=== PATIENT | female | born 1985 | race Caucasian/White ===

== ENCOUNTER → 2017-06-03 | Outpatient (CLI) | payer OTHER ==
[~2017-06-03] MED LIST: PERCOCET 5/3251 EACH PO; PRENATAL PLUS1 TA1 PO
== END ==
LOC: LAB 17:12
DX: Z32.00 Encounter for pregnancy test, result unknown (principal)

== ENCOUNTER → 2017-06-05 | Outpatient (CLI) | payer OTHER | LOC: LAB 16:54 | DX: Z32.00 Encounter for pregnancy test, result unknown (principal) ==

== ENCOUNTER → 2017-06-17 | Outpatient (CLI) | payer OTHER ==
[2017-06-17 16:38] LABS: LYMPH # 2.5 K/mm3 (0.7-4.5); LYMPH % 21.4 % (10-50.0)
[2017-06-17 16:58] LABS: HEMOGLOBIN 12.7 g/dL (12.2-16.2)
[2017-06-17 17:40] LABS: ABO BLOOD TYPE A; RH BLOOD TYPE POSITIVE
[2017-06-19 05:40] LABS: HIV Screen 4th Generation wRfx Non Reactive (Non Reactive)
[2017-06-19 08:46] LABS: HBsAg Screen Negative (Negative); Hep C Virus Ab 0.1 (0.0-0.9); Rapid Plasma Reagin, Quant Non Reactive (NonRea<1:1); Rubella Antibodies, IgG 1.78 index (Immune >0.99)
== END ==
LOC: LAB 16:06
PROVIDERS: Nurse Practitioner Obstetrics & Gynecology
DX: Z34.80 Encounter for supervision of other normal pregnancy, unspecified trimester (principal)
CPT/HCPCS: G0432